=== PATIENT | male | born 1995 | race African-American/Black ===

== ENCOUNTER 2020-11-22 14:54 | Emergency (ER) | payer OTHER ==
[~2020-11-22] VITALS: Ht 188 cm; Wt 79.4 kg
[2020-11-22 15:20] VITALS: BP 131/86
--- NOTE | 2020-11-22 15:20 | NUR ---
PT COMPLAINS OF RIGHT HAND PAIN X YESTERDAY. PT STATES HE WAS TRYING TO PUNCH THROUGH [employer] WOOD AND WAS NOT ABLE TO PUNCH THROUGH. ROM INTACT, RADIAL PULSE +2, CAP REFILL <3 SEC. SENSATION INTACT. PMH - DENIES
[2020-11-22] MEDS ORDERED: IBUP-1842 PO (16:30)
--- NOTE | 2020-11-22 16:45 | NUR ---
Splint placed on pt's right hand. An ulnar gutter splint. Asked if the pt would like the sling as well and he refused to have it.
== END 2020-11-22 17:00 | disposition home or self-care (01) ==
LOC: MED 14:54
DX: S62.396A Other fracture of fifth metacarpal bone, right hand, initial encounter for closed fracture (principal); Z88.0 Allergy status to penicillin; W22.01XA Walked into wall, initial encounter; Y93.89 Activity, other specified; Y92.89 Other specified places as the place of occurrence of the external cause; Y99.8 Other external cause status
CPT/HCPCS: 73110; 73130; 99284

== ENCOUNTER 2023-04-29 05:50 | Emergency (ER) | payer OTHER ==
[~2023-04-29] VITALS: Ht 188 cm; Wt 79.4 kg
[~2023-04-29 05:50] MED LIST: IBUP-1842 PO
[2023-04-29 06:09] VITALS: BP 140/76; PULSE 58; RESP 20; TEMP 97.4; O2SAT 98
[2023-04-29 06:47] VITALS: BP 136/72; PULSE 94; RESP 18; TEMP 97.5; O2SAT 99
== END 2023-04-29 06:47 | disposition home or self-care (01) ==
LOC: MED 05:50
DX: S39.012A Strain of muscle, fascia and tendon of lower back, initial encounter (principal); X58.XXXA Exposure to other specified factors, initial encounter; Y93.89 Activity, other specified; Y92.89 Other specified places as the place of occurrence of the external cause; Y99.8 Other external cause status
CPT/HCPCS: 99281

== ENCOUNTER 2023-10-09 18:29 | Emergency (ER) | payer OTHER ==
[~2023-10-09] VITALS: Ht 188 cm; Wt 83.9 kg
[2023-10-09 18:46] VITALS: BP 124/58; PULSE 72; RESP 16; TEMP 98.1; O2SAT 97
== END 2023-10-09 21:26 | disposition home or self-care (01) ==
LOC: MED 18:29
DX: R68.84 Jaw pain (principal); H92.01 Otalgia, right ear; Z79.899 Other long term (current) drug therapy; Z88.0 Allergy status to penicillin
CPT/HCPCS: 99282